=== PATIENT | female | born 1970 | race African-American/Black ===

== ENCOUNTER → 2017-01-20 | Outpatient (CLI) | payer OTHER ==
[2016-12-06 15:00] VITALS: BP 116/62
[~2017-01-20] MED LIST: ARIP30TA PO; DOCU-27 PO; FLUT1DIS5 IH; HYDR-2672 PO; IBUP-1060 PO; OXYC-323 PO; PARO40TA45 PO; VENTOLIN HFA18 GM IH
--- NOTE | 2017-01-20 10:52 | KCIC ---
PROCEDURE MR of the left knee HISTORY Left knee pain for 4-5 years. COMPARISON None TECHNIQUE Standard noncontrast images are obtained. FINDINGS No evidence of medial meniscal tear. There is some mild signal within the lateral meniscus which extends to the undersurface. There is also mild blunting of the free margin. Findings are compatible with a lateral meniscal tear. The anterior and posterior cruciate ligaments are intact. Medial collateral ligament is intact. Iliotibial band unremarkable. Fibular collateral ligament, biceps femorals tendon and popliteus tendon are intact. Extensor mechanism is intact. Trace fluid in the deep infrapatellar bursa. No bone lesion or acute fracture. Moderate chondromalacia of the lateral tibial plateau. Chondromalacia medial patella, particularly severe the upper facet. No bone lesion or acute fracture. No acute soft tissue injury. Trace Hammer cyst. IMPRESSION 1. Lateral meniscal tear. 2. 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
--- NOTE | 2017-01-20 11:00 | KCIC ---
PROCEDURE MR of the right knee HISTORY Right knee pain for 4-5 years. TECHNIQUE Standard noncontrast images are obtained. COMPARISON None FINDINGS Mild signal identified within the medial meniscus. This does extend to the medial capsular margin but there is no evidence of surface violation to indicate a tear. At the capsular margin this does communicate with a small parameniscal cyst. Degenerative tear of the lateral meniscus. The anterior and posterior cruciate ligaments are intact. Medial collateral ligament is intact. Iliotibial band unremarkable. Fibular collateral ligament, biceps femoris tendon and popliteus tendon are intact. Extensor mechanism is intact. Severe chondromalacia at the lateral joint compartment. Mild chondromalacia at the medial joint compartment. There is subchondral cystic degeneration at the medial tibial plateau. Mild chondromalacia at the patellofemoral joint. No bone lesion. No acute fracture. No acute soft tissue injury. Trace Hammer cyst. IMPRESSION 1. Lateral meniscal tear. 2. There is a tear of the medial meniscus which violates the capsular margin. No evidence of articular surface violation. 3. 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 Electronically signed by: Myles Wheeler MD (Jan 20, 2017 10:59:02)
--- NOTE | 2017-01-20 11:18 | KCIC ---
Exam:FINGER(S) LEFT Indication:Reason For Study Reason: AVULSION FX LT 4TH DIGIT / Spl. Instructions: / History: Findings: There is been partial healing of the avulsion fracture from the proximal aspect of the distal phalanx of the 4th digit. Fracture line remains evident but periosteal bridge is also present. Alignment is maintained. Impression: - Progressive partial healing of the distal phalanx fracture of the 4th digit. Electronically signed by: Caleb Thompson (Jan 20, 2017 11:17:11)
== END | disposition home or self-care (01) ==
LOC: KCIC MRI 08:28
PROVIDERS: ATTEND Physical Medicine & Rehabilitation
DX: M25.562 Pain in left knee (principal); S83.8X2A Sprain of other specified parts of left knee, initial encounter; S83.8X1A Sprain of other specified parts of right knee, initial encounter; S83.282A Other tear of lateral meniscus, current injury, left knee, initial encounter; S83.281A Other tear of lateral meniscus, current injury, right knee, initial encounter; M17.0 Bilateral primary osteoarthritis of knee
CPT/HCPCS: 73140; 73721

== ENCOUNTER 2017-12-30 11:56 | Emergency (ER) | payer OTHER ==
[2017-12-30 12:53] LABS: INFLUENZA A PATIENT NEGATIVE (NEGATIVE); INFLUENZA B PATIENT NEGATIVE (NEGATIVE); OBC FLU VALID
[2017-12-30 13:16] LABS: NEGATIVE OBC STREP NEG; POSITIVE OBC STREP POS
== END 2017-12-30 13:33 | disposition home or self-care (01) ==
LOC: ER 11:56
DX: J06.9 Acute upper respiratory infection, unspecified (principal); J45.909 Unspecified asthma, uncomplicated
CPT/HCPCS: 71046; 87070; 87804; 87804-59; 87880; 99285-25

== ENCOUNTER 2018-10-22 14:53 | Emergency (ER) | payer OTHER ==
[~2018-10-22] VITALS: Ht 165.1 cm; Wt 90.7 kg
[~2018-10-22 14:53] MED LIST changes: -ARIP30TA PO; +ARIP30TA4 PO; +DOCU-109 PO; -DOCU-27 PO; -HYDR-2672 PO; +HYDR-2766 PO; -PARO40TA45 PO; +PARO40TA61 PO
[2018-10-22 15:18] VITALS: BP 136/106
[2018-10-22] MEDS ORDERED: DIPH25CA58 PO (15:59)
[2018-10-22] MEDS ORDERED: HYDR453. TP (15:59)
--- NOTE | 2018-10-22 15:59 | PHYS DOC ---
Past Medical History Past Medical History: Asthma, Depression, Other Additional Past Medical Histor: back pain; knee pain Past Surgical History: Tubal ligation, Other Additional Past Surgical Histo: right ear Alcohol Use: None Drug Use: None Adult General Chief Complaint Chief Complaint: SKIN PROBLEM HPI HPI Patient is a 48 year old AA female who presents to the emergency department with complaints of itchy bumps on her right upper arm for the last 3 days. Patient states at first she thought that she may have bed bugs but she had an pit tanner, who stated that she did not have a bedbug problem patient states that her neighbors have dogs and reports concerns that these may be flea bites. Patient states that the area started out as large welts since decreased in size but remain a bit itchy. Denies any bleeding, fever, shortness of breath, wheezing, nausea, vomiting, or discharge from the itchy sites. Review of Systems Review of Systems Constitutional: Denies fever or chills [] Respiratory: Denies cough, and, or shortness of breath [] GI: Denies abdominal pain, nausea, vomiting, or diarrhea [] Integument: See history of present illness Neurologic: Denies headache, focal weakness or sensory changes [] All other systems were reviewed and found to be within normal limits, except as documented in this note. Allergies Allergies Allergies Coded Allergies Type Severity Reaction Last Updated Verified No Known Drug Allergies 12/05/16 No Physical Exam Physical Exam Constitutional: Well developed, well nourished, no acute distress, non-toxic appearance. [] HENT: Normocephalic, atraumatic, bilateral external ears normal, nose normal. [] Eyes: PERRLA, conjunctiva normal, no discharge. [] Cardiovascular:Heart rate regular rhythm, no murmur [] Lungs & Thorax: Bilateral breath sounds clear to auscultation [] Skin: Warm, dry, scattered raised welts to right upper arm with centralized punctum consistent with insect bite, no drainage or blistering Extremities: No tenderness, no cyanosis, no clubbing, ROM intact, no edema. [] Neurologic: Alert and oriented X 3, normal motor function, normal sensory function, no focal deficits noted. [] Psychologic: Affect normal, judgement normal, mood normal. [] Current Patient Data Vital Signs Vital Signs Date Time Temp Pulse Resp B/P (MAP) Pulse Ox O2 Delivery O2 Flow Rate FiO2 10/22/18 15:18 98.5 69 16 136/106 (116) 97 Room Air 98.5 EKG EKG [] Radiology/Procedures Radiology/Procedures [] Course & Med Decision Making Course & Med Decision Making Pertinent Labs and Imaging studies reviewed. (See chart for details) dx: Allergic reaction to insect bites Prescriptions for Benadryl and hydrocortisone cream. Follow-up with primary care doctor symptoms persist. Make sure to thoroughly clean your apartment and vacuum your carpets. Return to the emergency room if symptoms worsen. Patient verbalized an understanding of home care, medications, follow-up, and return to ED instructions and was in agreement with the plan of care. [] Dragon Disclaimer Dragon Disclaimer This electronic medical record was generated, in whole or in part, using a voice recognition dictation system. Departure Departure Impression: Primary Impression: Allergic reaction to insect bite Disposition: HOME, SELF-CARE Condition: STABLE Referrals: UNKNOWN PCP NAME (PCP) Patient Instructions: Insect Bite, [id number] Additional Instructions: Fill prescriptions and use them as directed. Be sure to thoroughly clean year apartment and vacuum carpets. Follow-up with your primary care doctor if symptoms persist. Return to the emergency room if your symptoms worsen. Scripts Diphenhydramine Hcl (BENADRYL) 25 Mg Capsule 25 MG PO QID PRN for ITCHING for 5 Days, #20 CAP 0 Refills Prov: AMANDEEP HUNT HORSEBACK RIDING INSTRUCTOR 10/22/18 Hydrocortisone (HYDROCORTISONE) 453.6 Gm Cream..g. 1 YULIYA TP TID PRN for ITCHING, #30 GM 0 Refills Prov: AMANDEEP HUNT HORSEBACK RIDING INSTRUCTOR 10/22/18 AMANDEEP HUNT HORSEBACK RIDING INSTRUCTOR Oct 22, 2018 15:59
== END 2018-10-22 16:14 | disposition home or self-care (01) ==
LOC: ER 14:53
DX: T63.481A Toxic effect of venom of other arthropod, accidental (unintentional), initial encounter (principal); L29.8 Other pruritus; J45.909 Unspecified asthma, uncomplicated; Y92.89 Other specified places as the place of occurrence of the external cause
CPT/HCPCS: 99283

== ENCOUNTER 2019-10-28 10:11 | Emergency (ER) | payer MEDICAID, OTHER ==
[~2019-10-28] VITALS: Ht 165.1 cm; Wt 96.6 kg
[~2019-10-28 10:11] MED LIST changes: +DIPH25CA58 PO; -HYDR-2766 PO; +HYDR-2769 PO; +HYDR453. TP; -OXYC-323 PO; +OXYC1TAB15 PO
[2019-10-28] MEDS ORDERED: HYDROcodone/APAP 5/325MG 1 TAB TABLET PO ONE (10:30)
[2019-10-28] MEDS ORDERED: ALBUTEROL SULFATE 2.5 MG/3 ML NEBU. NEB ONE (10:30)
--- NOTE | 2019-10-28 10:31 | PHYS DOC ---
Past Medical History Past Medical History: Asthma, Depression, Other Additional Past Medical Histor: back pain; knee pain Past Surgical History: Tubal ligation, Other Additional Past Surgical Histo: right ear Alcohol Use: None Drug Use: None Adult General Chief Complaint Chief Complaint: GENERALIZED BODY ACHES HPI HPI Patient is a 49 year old female who presents with yesterday began having sinus congestion, chest congestion, cough and shortness of air. Patient states she coughs so hard that she will vomit up green mucus. She denies fevers or Abdominal pain states that her chest is hurting in her upper back is hurting now. Patient states she has a history of asthma and last use her nebulizer 2 days ago and she used her inhaler earlier this morning with little relief. She is rating her overall pain as 10. She states she has overall weakness. Review of Systems Review of Systems HENT: nasal congestion or denies sore throat [] Respiratory: cough or shortness of breath [] Cardiovascular: Chest pain with cough GI: Denies abdominal pain, nausea, vomiting, bloody stools or diarrhea [] Musculoskeletal: upper back pain or denies joint pain [] Neurologic: Generalized weakness. Denies headache, focal weakness or sensory changes [] All other systems were reviewed and found to be within normal limits, except as documented in this note. Current Medications Current Medications Current Medications Medications (Trade) Dose Ordered Sig/Andre Start Time Stop Time Status Last Admin Dose Admin Acetaminophen/ Hydrocodone Bitart (Lortab 5/325) 1 tab 1X ONCE 10/28/19 10:30 10/28/19 10:38 DC 10/28/19 11:32 1 TAB Albuterol Sulfate (Ventolin Neb Soln) 2.5 mg 1X ONCE 10/28/19 10:30 10/28/19 10:38 DC 10/28/19 10:56 2.5 MG Orphenadrine Citrate (Norflex) 60 mg 1X ONCE 10/28/19 11:15 10/28/19 11:16 DC 10/28/19 11:32 60 MG Allergies Allergies Allergies Coded Allergies Type Severity Reaction Last Updated Verified No Known Drug Allergies 12/05/16 No Physical Exam Physical Exam Constitutional: Well developed, well nourished, no acute distress, non-toxic appearance. [] HENT: Normocephalic, atraumatic, bilateral external ears normal, oropharynx moist, no oral exudates, nose normal. Nasal congestion. [] Eyes: PERRLA, EOMI, conjunctiva normal, no discharge. [] Neck: Normal range of motion, no tenderness, supple, no stridor. [] Cardiovascular:Heart rate regular rhythm, no murmur [] Lungs & Thorax: Bilateral breath sounds diminished to auscultation [] Abdomen: Bowel sounds normal, soft, no tenderness, no masses, no pulsatile masses. [] Skin: Warm, dry, no erythema, no rash. [] Back: No tenderness, no CVA tenderness. [] Extremities: No tenderness, no cyanosis, no clubbing, ROM intact, no edema. [] Neurologic: Alert and oriented X 3, normal motor function, normal sensory function, no focal deficits noted. [] Psychologic: Affect normal, judgement normal, mood normal. [] Current Patient Data Vital Signs Vital Signs Date Time Temp Pulse Resp B/P (MAP) Pulse Ox O2 Delivery O2 Flow Rate FiO2 10/28/19 10:57 98 Room Air 10/28/19 10:12 98.1 88 20 147/92 (110) 98.1 Lab Values Laboratory Tests Test 10/28/19 10:30 10/28/19 11:33 White Blood Count 11.8 x10^3/uL (4.0-11.0) H Red Blood Count 4.60 x10^6/uL (3.50-5.40) Hemoglobin 11.5 g/dL (12.0-15.5) L Hematocrit 35.9 % (36.0-47.0) L Mean Corpuscular Volume 78 fL (79-100) L Mean Corpuscular Hemoglobin 25 pg (25-35) Mean Corpuscular Hemoglobin Concent 32 g/dL (31-37) Red Cell Distribution Width 14.9 % (11.5-14.5) H Platelet Count 215 x10^3/uL (140-400) Neutrophils (%) (Auto) 69 % (31-73) Lymphocytes (%) (Auto) 23 % (24-48) L Monocytes (%) (Auto) 7 % (0-9) Eosinophils (%) (Auto) 1 % (0-3) Basophils (%) (Auto) 1 % (0-3) Neutrophils # (Auto) 8.1 x10^3/uL (1.8-7.7) H Lymphocytes # (Auto) 2.7 x10^3/uL (1.0-4.8) Monocytes # (Auto) 0.8 x10^3/uL (0.0-1.1) Eosinophils # (Auto) 0.1 x10^3/uL (0.0-0.7) Basophils # (Auto) 0.1 x10^3/uL (0.0-0.2) Sodium Level 141 mmol/L (136-145) Potassium Level 3.4 mmol/L (3.5-5.1) L Chloride Level 103 mmol/L (98-107) Carbon Dioxide Level 29 mmol/L (21-32) Anion Gap 9 (6-14) Blood Urea Nitrogen 5 mg/dL (7-20) L Creatinine 0.9 mg/dL (0.6-1.0) Estimated GFR (Cockcroft-Gault) 80.2 Glucose Level 96 mg/dL (70-99) Calcium Level 9.2 mg/dL (8.5-10.1) Troponin I Quantitative < 0.017 ng/mL (0.000-0.055) Influenza Type A Antigen Negative (NEGATIVE) Influenza Type B Antigen Negative (NEGATIVE) Laboratory Tests 10/28/19 10:30 Laboratory Tests 10/28/19 10:30 EKG EKG Sinus Rhythm and no STEMI[] Interpretation Time: [address] Hammer Radiology/Procedures Radiology/Procedures [] Impressions: [facility] [address] [place] [address] IMAGING REPORT Signed PATIENT: DEONTE LOPEZ ACCOUNT: [id number] : 1970 LOCATION: ER AGE: 49 SEX: F EXAM STATUS: PRE ER ORD. PHYSICIAN: DIO RANKIN APRN REASON: cough PROCEDURE: CHEST PA & LATERAL CHEST PA LATERAL Technique: PA and lateral views of the chest were obtained. Clinical History: Cough Comparison: December 30, 2017. Findings: The heart and pulmonary vasculature appear within normal limits. The lungs are clear. The pleural margins are clear. Impression: No acute chest process is seen. Electronically signed by: Chris Mendez III, MD (10/28/2019 10:52 AM) [facility] [place] DICTATED and SIGNED BY: CHRIS MENDEZ III, MD DATE: 10/28/19 105 Course & Med Decision Making Course & Med Decision Making Alert and oriented. Speaks in full clear sentences. All lung lobes but diminished. Ambulatory with a steady gait. Patient arrived by EMS. Abdomen soft and nontender. Chest and back pain are reproduced by coughing or taking deep breaths. Skin pink warm and dry. Vital signs are within normal limits. PERRLA. Patient denies dizziness, headache, numbness or tingling, nausea, abdominal pain, dysuria, focal weakness. Throat pink and no swelling or exudates. Bilateral tympanics pearly white. 1115: Inspiratory therapist states that the patient got limited into her breathing treatment and stated she could not finish it because it hurt too bad to breathe in her upper back and in her chest. Patient refused because the br eathing treatment. 1210: After medication is given patient states she is feeling much better. Melani may is now taking her breathing treatment. 1220: Lungs clearer after breathing treatment. Dragon Disclaimer Dragon Disclaimer This electronic medical record was generated, in whole or in part, using a voice recognition dictation system. Departure Departure Impression: Primary Impression: Cough Additional Impression: Upper back pain Disposition: 01 HOME, SELF-CARE Referrals: UNKNOWN PCP NAME (PCP) Patient Instructions: Bronchitis Additional Instructions: Follow up with primary care provider. Use your breathing treatments at home every 4 hours. Take medication as prescribed. Scripts Albuterol Sulfate (PROAIR HFA INHALER) 8.5 Gm Hfa.aer.ad 1 PUFF INH PRN Q6HRS PRN for SHORTNESS OF BREATH, #1 INHALER 0 Refills Prov: DIO RANKIN WORKGROUP LEADER 10/28/19 Orphenadrine Citrate (ORPHENADRINE CITRATE) 100 Mg Tablet.er 1 TAB PO BID, #10 TAB 1 Refill Prov: DIO RANKIN 10/28/19 Hydrocodone/Apap 5-325 (NORCO 5-325 TABLET) 1 Each Tablet 1 TAB PO PRN Q6HRS PRN for PAIN, #10 TAB 0 Refills Prov: DIO RANKIN WORKGROUP LEADER 10/28/19 Methylprednisolone (MEDROL) 4 Mg Tab.ds.pk 1 PKG PO UD, #1 PKG Prov: DIO RANKIN APRN 10/28/19 Problem Qualifiers DIO RANKIN APRN Oct 28, 2019 10:31
[2019-10-28 10:42] VITALS: BP 160/56
[2019-10-28 10:48] LABS: BASO # 0.1 x10^3/uL (0.0-0.2); BASO % 1 % (0-3); EOS # 0.1 x10^3/uL (0.0-0.7); EOS % 1 % (0-3); HEMATOCRIT 35.9 % (36.0-47.0); HEMOGLOBIN 11.5 g/dL (12.0-15.5); LYMPH # 2.7 x10^3/uL (1.0-4.8); LYMPH % 23 % (24-48); MEAN CORPUSCULAR HEMOGLOBIN 25 pg (25-35); MEAN CORPUSCULAR HGB CONC 32 g/dL (31-37); MEAN CORPUSCULAR VOLUME 78 fL (79-100); MONO # 0.8 x10^3/uL (0.0-1.1); MONO % 7 % (0-9); NEUT # 8.1 x10^3/uL (1.8-7.7); NEUT % 69 % (31-73); PLATELET COUNT 215 x10^3/uL (140-400); RED CELL DISTRIBUTION WIDTH 14.9 % (11.5-14.5); WHITE BLOOD COUNT 11.8 x10^3/uL (4.0-11.0)
[2019-10-28 10:54] LABS: CALCIUM 9.2 mg/dL (8.5-10.1); CREATININE 0.9 mg/dL (0.6-1.0); GFR 80.2; POTASSIUM 3.4 mmol/L (3.5-5.1)
--- NOTE | 2019-10-28 10:55 | RAD ---
CHEST PA LATERAL Technique: PA and lateral views of the chest were obtained. Clinical History: Cough Comparison: December 30, 2017. Findings: The heart and pulmonary vasculature appear within normal limits. The lungs are clear. The pleural margins are clear. Impression: No acute chest process is seen. Electronically signed by: Chip Farrar III, MD (10/28/2019 10:52 AM) [facility] [place]
[2019-10-28] MEDS ORDERED: ORPHENADRINE CITRATE 60 MG/2 ML VIAL. IM ONE (11:15)
[2019-10-28 12:05] LABS: INFLUENZA A PATIENT NEGATIVE (NEGATIVE); INFLUENZA B PATIENT NEGATIVE (NEGATIVE)
[2019-10-28] MEDS ORDERED: ORPH100T PO (12:13)
[2019-10-28] MEDS ORDERED: METH4TAB2 PO (12:13)
[2019-10-28] MEDS ORDERED: HYDR-3164 PO (12:13)
[2019-10-28] MEDS ORDERED: ALBU2.5V8 INH (12:13)
--- NOTE | 2019-10-29 10:11 | EKG ---
[facility] [address] [place] [address] Test Date: 2019-10-28 Test Time: 10:53:00 Pat Name: DEONTE LOPEZ Department: Room: Gender: F Paper Processing Machine Helper: : 1970 Requested By: DIO RANKIN Order Number: [id number] Reading MD: Measurements Intervals Fonda Rate: 81 P: 38 SC: 206 QRS: -3 QRSD: 82 T: 16 QT: 456 QTc: 530 Interpretive Statements SINUS RHYTHM LEFTWARD AXIS QRS(T) CONTOUR ABNORMALITY CONSIDER ANTEROLATERAL MYOCARDIAL DAMAGE PROLONGED QT POSSIBLY ABNORMAL ECG RI6.01 No previous ECG available for comparison
== END 2019-10-28 12:40 | disposition home or self-care (01) ==
LOC: ER 10:11
DX: R05 Cough (principal); M54.6 Pain in thoracic spine; R09.81 Nasal congestion; R09.89 Other specified symptoms and signs involving the circulatory and respiratory systems; R53.1 Weakness; J45.909 Unspecified asthma, uncomplicated; Z98.51 Tubal ligation status
CPT/HCPCS: 36415; 71046; 80048; 84484; 85025; 87804; 93005; 94640; 96372; 99285; J2360; J7613